=== PATIENT | female | born 1990 | race Caucasian/White ===

== ENCOUNTER → 2017-06-14 | Emergency (ER) | payer OTHER ==
[~2017-06-14] VITALS: Ht 157.5 cm; Wt 59.4 kg
== END | disposition home or self-care (01) ==
LOC: ER 10:42
DX: N61.0 Mastitis without abscess (principal)

== ENCOUNTER 2021-10-12 10:03 | Day surgery (SDC) | payer OTHER ==
[~2021-10-12] VITALS: Ht 157.5 cm; Wt 51.7 kg
== END 2021-10-13 00:46 | disposition home or self-care (01) ==
LOC: CIR.AMB 10:03
PROVIDERS: ATTEND Obstetrics & Gynecology
DX: R87.613 High grade squamous intraepithelial lesion on cytologic smear of cervix (HGSIL) (principal); Q51.828 Other congenital malformations of cervix; Z20.822 Contact with and (suspected) exposure to COVID-19

== ENCOUNTER 2022-02-27 15:28 | Emergency (ER) | payer OTHER ==
[~2022-02-27] VITALS: Ht 157.5 cm; Wt 49.4 kg
== END 2022-02-27 22:06 | disposition home or self-care (01) ==
LOC: ER 15:28
DX: B34.9 Viral infection, unspecified (principal); Z20.822 Contact with and (suspected) exposure to COVID-19

== ENCOUNTER 2022-03-01 13:18 | Emergency (ER) | payer OTHER ==
[~2022-03-01] VITALS: Ht 157.5 cm; Wt 49.4 kg
== END 2022-03-01 18:18 | disposition home or self-care (01) ==
LOC: ER 13:18
DX: R10.9 Unspecified abdominal pain (principal); Z20.822 Contact with and (suspected) exposure to COVID-19

== ENCOUNTER 2024-05-05 00:06 | Emergency (ER) | payer OTHER ==
[~2024-05-05] VITALS: Ht 157.5 cm; Wt 58.1 kg
[2024-05-05] MEDS ORDERED: KETOROLAC TROMETHAMINE 10 MG TABLET PO STA (02:40)
[2024-05-05] MEDS ORDERED: KETO10TA2 PO (03:43)
== END 2024-05-05 04:06 ==
LOC: ER 00:07
DX: S60.041A Contusion of right ring finger without damage to nail, initial encounter (principal); X58.XXXA Exposure to other specified factors, initial encounter; Y93.89 Activity, other specified; Y92.89 Other specified places as the place of occurrence of the external cause; Y99.9 Unspecified external cause status